=== PATIENT | male | born 1940 | race Caucasian/White ===

== ENCOUNTER 2017-06-18 01:46 | Emergency (ER) | payer OTHER ==
[~2017-06-18] VITALS: Ht 185.4 cm; Wt 77.1 kg
[~2017-06-18 01:46] MED LIST: CARB25TA57 PO; LEV100T PO; OMEP20CA74 PO
[2017-06-18] MEDS ORDERED: HYDROmorphone HCL 2 MG/ML VL IV ONE ×2 (04:00→08:15)
[2017-06-18 04:26] LABS: Basophils # (auto) 0.1 uL; Basophils % (auto) 1.3 % (0.0-2.0); Eosinophils # (auto) 0.1 uL; Eosinophils % (auto) 0.8 % (0.0-7.0); Hematocrit 39.8 % (41.0-53.0); Hemoglobin 13.6 g/dL (13.5-17.5); Lymphocytes # (auto) 1.5 uL; Lymphocytes % (auto) 13.6 % (10.0-50.0); Mean Corpuscular Hemoglobin 33.8 pg (28.0-32.0); Mean Corpuscular Hgb Conc. 34.2 g/dL (32.0-36.0); Mean Corpuscular Volume 98.8 fL (80.0-100.0); Mean Platelet Volume 9.4 fL (6.9-10.8); Monocytes # (auto) 0.5 uL; Monocytes % (auto) 4.7 % (0.0-12.0); Neutrophils # (auto) 8.7 uL; Neutrophils % (auto) 79.6 % (37.0-80.0); Nucleated Red Blood Cells % 0.1 %; Platelet Count (auto) 206 10^3/uL (140-450); Red Cell Distribution Width 13.2 % (11.8-14.3); White Blood Cell 10.9 10^3/uL (4.4-10.8)
[2017-06-18 04:41] LABS: INR 0.95 (0.9-1.15); Partial Thromboplastin Time 25.7 sec (22.64-33.71); Prothrombin Time 10.3 sec (9.37-12.3)
[2017-06-18 04:46] LABS: Amylase 77 U/L (25-115); Anion Gap 9 (5-15); Aspartate Aminotransferase 28 U/L (15-37); BUN/Creatinine Ratio 28.4; Blood Urea Nitrogen 40 mg/dL (7-18); Calcium 9.5 mg/dL (8.5-10.1); Carbon Dioxide 25 mmol/L (21-32); Chloride 111 mmol/L (98-107); GFR African American 63 mL/min; GFR Non-African American 52 mL/min; Glucose 118 mg/dL (74-106); Potassium 4.9 mmol/L (3.5-5.1); Sodium 145 mmol/L (136-145)
[2017-06-18 04:48] LABS: Alkaline Phosphatase 83 U/L (45-117); Bilirubin, Total 0.4 mg/dL (0.2-1.0); Total Protein 7.7 g/dL (6.4-8.2)
[2017-06-18] MEDS ORDERED: ONDANSETRON HCL 4 MG/2 ML VIAL IV ONE (08:15)
[2017-06-18 08:34] VITALS: BP 122/75
== END 2017-06-18 08:48 | disposition short-term general hospital (02) ==
LOC: EDBD 01:46 → ER 01:51
DX: K56.609 Unspecified intestinal obstruction, unspecified as to partial versus complete obstruction (principal); R73.9 Hyperglycemia, unspecified; Z85.828 Personal history of other malignant neoplasm of skin; Z87.442 Personal history of urinary calculi; Z88.0 Allergy status to penicillin
CPT/HCPCS: 36415; 74176; 80053; 82150; 83690; 84484; 85025; 85610; 85730; 94761; 96374; 96375; 96376; 99285; J1170; J2405

== ENCOUNTER 2017-12-14 16:56 | Emergency (ER) | payer OTHER ==
[~2017-12-14] VITALS: Ht 182.9 cm; Wt 79.4 kg
[2017-12-14 19:30] LABS: Basophils # (auto) 0.1 uL; Basophils % (auto) 0.8 % (0.0-2.0); Eosinophils # (auto) 0.6 uL; Eosinophils % (auto) 6.6 % (0.0-7.0); Hematocrit 30.5 % (41.0-53.0); Hemoglobin 10.2 g/dL (13.5-17.5); Lymphocytes # (auto) 2.1 uL; Lymphocytes % (auto) 20.8 % (10.0-50.0); Mean Corpuscular Hemoglobin 33.6 pg (28.0-32.0); Mean Corpuscular Hgb Conc. 33.5 g/dL (32.0-36.0); Mean Corpuscular Volume 100.4 fL (80.0-100.0); Monocytes # (auto) 0.6 uL; Monocytes % (auto) 6.4 % (0.0-12.0); Neutrophils # (auto) 6.5 uL; Neutrophils % (auto) 65.4 % (37.0-80.0); Platelet Count (auto) 252 10^3/uL (140-450); Red Blood Cells 3.03 10^6/uL (4.5-5.90); Red Cell Distribution Width 13.5 % (11.8-14.3); White Blood Cell 9.9 10^3/uL (4.4-10.8)
[2017-12-14 19:35] LABS: Alanine Aminotransferase 8 U/L (16-61); Albumin 3.5 g/dL (3.4-5.0); Alkaline Phosphatase 98 U/L (45-117); Anion Gap 7 (5-15); Aspartate Aminotransferase 16 U/L (15-37); BUN/Creatinine Ratio 27.3; Bilirubin, Total 0.3 mg/dL (0.2-1.0); Blood Urea Nitrogen 42 mg/dL (7-18); Calcium 8.3 mg/dL (8.5-10.1); Carbon Dioxide 21 mmol/L (21-32); Chloride 111 mmol/L (98-107); GFR African American 57 mL/min; GFR Non-African American 47 mL/min; Glucose 95 mg/dL (74-106); Magnesium 2.4 mg/dL (1.6-2.6); Potassium 4.4 mmol/L (3.5-5.1); Sodium 139 mmol/L (136-145); Total Protein 7.9 g/dL (6.4-8.2)
[2017-12-14] MEDS ORDERED: ENOXAPARIN SOD 100 MG/1 ML SYRINGE SC ONE (20:00)
[2017-12-14] MEDS ORDERED: CLINDAMYCIN 600MG IV 50 ML IV ONE (20:00)
[2017-12-14 21:20] LABS: Urine Bacteria NONE SEEN /hpf (None Seen); Urine Blood Negative /uL (Negative); Urine Hyaline Cast FEW /lpf (0 - 2); Urine Mucus FEW (None Seen); Urine Specific Gravity 1.021 (1.001-1.035); Urine WBC 1 /hpf (0 - 3)
[2017-12-14] MEDS ORDERED: CLIN150C PO (23:22)
[2017-12-14] MEDS ORDERED: AMAN100T PO (23:22)
[2017-12-14] MEDS ORDERED: POLY335015 PO (23:22)
[2017-12-14] MEDS ORDERED: OXYB15TA12 PO (23:22)
[2017-12-14] MEDS ORDERED: MEGE40TA15 PO (23:22)
[2017-12-14] MEDS ORDERED: CALCTAB25 PO (23:22)
[2017-12-14] MEDS ORDERED: LACT10CA2 OR (23:22)
[2017-12-14 23:35] VITALS: BP 107/61
== END 2017-12-14 23:40 | disposition home or self-care (01) ==
LOC: ER 17:01
DX: L03.116 Cellulitis of left lower limb (principal); Z79.01 Long term (current) use of anticoagulants; Z87.442 Personal history of urinary calculi; Z88.0 Allergy status to penicillin; Z88.2 Allergy status to sulfonamides
CPT/HCPCS: 36415; 71045; 80053; 81001; 83735; 84484; 85025; 93005; 93971; 94761; 96365; 96366; 96372; 99285; J1650; J3490

== ENCOUNTER 2021-04-18 01:47 | Inpatient (IN) | payer OTHER ==
[~2021-04-18] VITALS: Ht 182.9 cm; Wt 89.6 kg
[~2021-04-18 01:47] MED LIST changes: +AMAN100T PO; +CALCTAB25 PO; +CLIN150C PO; +LACT10CA2 OR; +MEGE40TA4 PO; +OXYB15TA12 PO; +POLY335015 PO
[2021-04-18 02:27] LABS: Basophils # (auto) 0.1 10 ^3/uL (0-0.2); Basophils % (auto) 1.3 % (0.0-2.0); Eosinophils # (auto) 0.3 10 ^3/uL (0-0.8); Eosinophils % (auto) 3.8 % (0.0-7.0); Hematocrit 37.7 % (41.0-53.0); Hemoglobin 12.8 g/dL (13.5-17.5); Lymphocytes # (auto) 2.3 10 ^3/uL (0.4-5.4); Lymphocytes % (auto) 27.2 % (10.0-50.0); Mean Corpuscular Hemoglobin 33.1 pg (28.0-32.0); Mean Corpuscular Hgb Conc. 33.9 g/dL (32.0-36.0); Mean Corpuscular Volume 97.6 fL (80.0-100.0); Monocytes # (auto) 0.6 10 ^3/uL (0-1.3); Monocytes % (auto) 7.3 % (0.0-12.0); Neutrophils % (auto) 60.4 % (37.0-80.0); Nucleated Red Blood Cells % 0.1 %; Red Blood Cells 3.86 10^6/uL (4.5-5.90); Red Cell Distribution Width 14.3 % (11.8-14.3); White Blood Cell 8.3 10^3/uL (4.4-10.8)
[2021-04-18 02:46] LABS: Alanine Aminotransferase 13 U/L (16-61); Albumin 3.8 g/dL (3.4-5.0); Anion Gap 9 (5-15); Aspartate Aminotransferase 28 U/L (15-37); BUN/Creatinine Ratio 23.3; Blood Urea Nitrogen 52 mg/dL (7-18); Calcium 9.6 mg/dL (8.5-10.1); Carbon Dioxide 24 mmol/L (21-32); Chloride 109 mmol/L (98-107); GFR African American 37 mL/min; GFR Non-African American 30 mL/min; Glucose 110 mg/dL (74-106); Magnesium 2.6 mg/dL (1.6-2.6); Potassium 4.3 mmol/L (3.5-5.1); Sodium 142 mmol/L (136-145)
[2021-04-18 02:51] LABS: Alkaline Phosphatase 117 U/L (45-117); Bilirubin, Total 0.2 mg/dL (0.2-1.0)
[2021-04-18] MEDS ORDERED: HEPARIN SODIUM (PORCINE) 5000 UNITS/ML 1ML VIAL IV ONE (04:30)
[2021-04-18] MEDS ORDERED: HEPARIN DRIP/D5W 100UNITS/ML 250 ML IV SCH ×2 (04:30→09:00)
[2021-04-18 05:46] LABS: INR 0.99 (0.9-1.15); Partial Thromboplastin Time 22.9 sec (23.6-33.0)
[2021-04-18] MEDS ORDERED: levoFLOXacin 500MG 100 ML IV ONE (06:45)
[2021-04-18] MEDS ORDERED: VANCOMYCIN 1,500 MG in D5W 5% 250 ML IV ONE (07:45)
[2021-04-18] MEDS ORDERED: MORPHINE SULFATE INJECTION 2 MG/2 ML SYRG IV PRN (10:30)
[2021-04-18] MEDS ORDERED: NITROGLYCERIN 0.4 MG SL TAB SL PRN (10:30)
[2021-04-18] MEDS ORDERED: ALBUTEROL SULF 2.5 MG/0.5ML(0.5%) NEB SOLN NEB PRN (12:00)
[2021-04-18] MEDS ORDERED: ACETAMINOPHEN 500 MG TAB PO PRN (12:00)
[2021-04-18] MEDS ORDERED: DEXTROSE (50%) 50ML SYRG IV PRN (12:00)
[2021-04-18] MEDS ORDERED: LACTULOSE 20Gm/30ML SOLN PO PRN (12:00)
[2021-04-18] MEDS ORDERED: cefTRIAXone 1GM/50ML D5W 50 ML IV ONE (12:00)
[2021-04-18] MEDS ORDERED: ONDANSETRON HCL 4 MG/2 ML VIAL IV PRN (12:00)
[2021-04-18] MEDS ORDERED: traMADol HCL 50 MG TAB PO PRN (12:00)
[2021-04-18 12:10] VITALS: BP 97/52
[2021-04-18 12:34] LABS: Urine Bacteria FEW /hpf (None Seen); Urine Blood 2+ /uL (Negative); Urine Specific Gravity 1.017 (1.001-1.035); Urine WBC 24 /hpf (0 - 3)
[2021-04-18] MEDS: IPRATROPIUM BROM 0.5 MG/2.5ML INH SOL NEB SCH ×2 (13:30→18:00)
[2021-04-18] MEDS: ALBUTEROL SULF 2.5 MG/0.5ML(0.5%) NEB SOLN NEB SCH ×2 (13:30→18:00)
[2021-04-18] MEDS: SODIUM CHLORIDE 0.9% 1,000 ML IV SCH ×2 (14:14→15:24)
[2021-04-18] MEDS ORDERED: ENOXAPARIN SOD 80 MG/0.8ML SYRINGE SC ONE (15:45)
[2021-04-18] MEDS: InsuLIN REG 1unit/0.01ml Soln (100units/ml) SC SCH ×2 (17:00→22:00)
[2021-04-18] MEDS: ACCU-CHEK COMFORT CURVE STRIP VI SCH ×2 (17:25→22:56)
[2021-04-18 21:47] VITALS: BP 102/77
[2021-04-18] MEDS ORDERED: ENOXAPARIN SOD 40 MG/0.4 ML SYRINGE SC SCH (22:00)
[2021-04-18] MEDS ORDERED: MID10T GT (23:28)
[2021-04-18] MEDS ORDERED: LEVO125T7 PO (23:28)
[2021-04-18] MEDS ORDERED: CARB10TA7 PO (23:28)
[2021-04-18] MEDS ORDERED: POLYPOW85 PO (23:28)
[2021-04-18] MEDS ORDERED: BUSP10TA31 PO (23:28)
[2021-04-18] MEDS ORDERED: FURO1TAB33 PO (23:28)
[2021-04-18] MEDS ORDERED: CYAN100056 PO (23:28)
[2021-04-18] MEDS ORDERED: TRAZ-181 PO (23:28)
[2021-04-18] MEDS ORDERED: ALBU2TAB4 PO (23:28)
[2021-04-18] MEDS ORDERED: LATA0.0019 EACHEYE (23:28)
[2021-04-18] MEDS ORDERED: OMEP20TA PO (23:28)
[2021-04-18] MEDS ORDERED: CALC-460 OR (23:28)
[2021-04-18] MEDS ORDERED: HYDR25SU21 PR (23:28)
[2021-04-18] MEDS ORDERED: CLOP75TA70 PO (23:28)
[2021-04-18] MEDS ORDERED: LEVO0.5S6 OP (23:28)
[2021-04-18] MEDS ORDERED: CARB0.5D8 EACHEYE (23:28)
[2021-04-18] MEDS ORDERED: PIMA34CA PO (23:28)
[2021-04-18] MEDS ORDERED: IPR002IS HHN (23:28)
[2021-04-18] MEDS ORDERED: AMAN100T PO (23:28)
[2021-04-18] MEDS ORDERED: CHLO0.12 MT (23:28)
[2021-04-19 00:10] VITALS: BP 102/77
[2021-04-19 02:23] LABS: Hematocrit 31.8 % (41.0-53.0); Hemoglobin 10.8 g/dL (13.5-17.5)
[2021-04-19 05:30] VITALS: BP 103/57
[2021-04-19] MEDS: InsuLIN REG 1unit/0.01ml Soln (100units/ml) SC SCH ×2 (06:00→11:30)
[2021-04-19] MEDS: ACCU-CHEK COMFORT CURVE STRIP VI SCH ×2 (06:00→11:59)
[2021-04-19] MEDS: IPRATROPIUM BROM 0.5 MG/2.5ML INH SOL NEB SCH ×4 (07:00→18:07)
[2021-04-19] MEDS: ALBUTEROL SULF 2.5 MG/0.5ML(0.5%) NEB SOLN NEB SCH ×4 (07:00→18:07)
[2021-04-19 07:04] LABS: Basophils # (auto) 0.1 10 ^3/uL (0-0.2); Basophils % (auto) 0.9 % (0.0-2.0); Eosinophils # (auto) 0.3 10 ^3/uL (0-0.8); Eosinophils % (auto) 3.9 % (0.0-7.0); Hematocrit 30.4 % (41.0-53.0); Hemoglobin 10.5 g/dL (13.5-17.5); Lymphocytes # (auto) 1.5 10 ^3/uL (0.4-5.4); Lymphocytes % (auto) 19.2 % (10.0-50.0); Mean Corpuscular Hemoglobin 33.5 pg (28.0-32.0); Mean Corpuscular Hgb Conc. 34.5 g/dL (32.0-36.0); Mean Corpuscular Volume 97.1 fL (80.0-100.0); Monocytes # (auto) 0.5 10 ^3/uL (0-1.3); Monocytes % (auto) 6.9 % (0.0-12.0); Neutrophils # (auto) 5.2 10 ^3/uL (1.6-8.6); Neutrophils % (auto) 69.1 % (37.0-80.0); Red Blood Cells 3.14 10^6/uL (4.5-5.90); Red Cell Distribution Width 13.6 % (11.8-14.3); White Blood Cell 7.6 10^3/uL (4.4-10.8)
[2021-04-19 07:26] LABS: Potassium 4.1 mmol/L (3.5-5.1)
[2021-04-19 07:35] LABS: Albumin 2.8 g/dL (3.4-5.0); Bilirubin, Total 0.6 mg/dL (0.2-1.0); Calcium 9.1 mg/dL (8.5-10.1); Total Protein 6.4 g/dL (6.4-8.2)
[2021-04-19 09:00] VITALS: BP 96/64
[2021-04-19] MEDS: cefTRIAXone 1GM/50ML D5W 50 ML IV SCH (09:06)
[2021-04-19] MEDS: AZITHROMYCIN 500MG/ 250ML 250 ML IV SCH (10:51)
[2021-04-19] MEDS: PANTOPRAZOLE 40 MG TAB PO SCH (10:52)
[2021-04-19] MEDS: ENOXAPARIN SOD 80 MG/0.8ML SYRINGE SC SCH (10:52)
[2021-04-19 13:00] VITALS: BP 81/51
[2021-04-19 17:00] VITALS: BP 107/58
[2021-04-19 22:00] VITALS: BP 97/55
[2021-04-19] MEDS: SODIUM CHLORIDE 0.9% 1,000 ML IV SCH (22:25)
[2021-04-20] MEDS: ALBUTEROL SULF 2.5 MG/0.5ML(0.5%) NEB SOLN NEB SCH ×5 (00:12→23:59)
[2021-04-20] MEDS: IPRATROPIUM BROM 0.5 MG/2.5ML INH SOL NEB SCH ×5 (00:12→23:59)
[2021-04-20 05:00] VITALS: BP 117/68
[2021-04-20 05:16] LABS: Basophils # (auto) 0.1 10 ^3/uL (0-0.2); Basophils % (auto) 1.4 % (0.0-2.0); Eosinophils # (auto) 0.2 10 ^3/uL (0-0.8); Eosinophils % (auto) 2.7 % (0.0-7.0); Hematocrit 31.2 % (41.0-53.0); Hemoglobin 10.7 g/dL (13.5-17.5); Lymphocytes % (auto) 30.1 % (10.0-50.0); Mean Corpuscular Hemoglobin 33.7 pg (28.0-32.0); Mean Corpuscular Hgb Conc. 34.3 g/dL (32.0-36.0); Monocytes # (auto) 0.4 10 ^3/uL (0-1.3); Monocytes % (auto) 6.8 % (0.0-12.0); Neutrophils # (auto) 3.9 10 ^3/uL (1.6-8.6); Red Blood Cells 3.19 10^6/uL (4.5-5.90); Red Cell Distribution Width 13.8 % (11.8-14.3); White Blood Cell 6.5 10^3/uL (4.4-10.8)
[2021-04-20 05:29] LABS: Albumin 3.1 g/dL (3.4-5.0); Calcium 8.4 mg/dL (8.5-10.1); Potassium 4.5 mmol/L (3.5-5.1)
[2021-04-20 05:31] LABS: BUN/Creatinine Ratio 21.7
[2021-04-20 05:33] LABS: Bilirubin, Total 0.4 mg/dL (0.2-1.0); Total Protein 6.6 g/dL (6.4-8.2)
[2021-04-20 08:00] VITALS: BP 114/62
[2021-04-20] MEDS: cefTRIAXone 1GM/50ML D5W 50 ML IV SCH (08:41)
[2021-04-20 09:00] VITALS: BP 95/39
[2021-04-20] MEDS: ENOXAPARIN SOD 80 MG/0.8ML SYRINGE SC SCH ×2 (10:33→22:16)
[2021-04-20] MEDS: PANTOPRAZOLE 40 MG TAB PO SCH (10:33)
[2021-04-20] MEDS: AZITHROMYCIN 500MG/ 250ML 250 ML IV SCH (10:33)
[2021-04-20 12:48] LABS: INR 0.99 (0.9-1.15); Partial Thromboplastin Time 28.5 sec (23.6-33.0)
[2021-04-20 13:00] VITALS: BP 90/38
[2021-04-20] MEDS ORDERED: SODIUM CHLORIDE 0.9% 500 ML IV ONE (14:00)
[2021-04-20] MEDS: CARBIDOPA W LEVODOPA 25/100mg TABLET PO SCH ×2 (14:40→22:16)
[2021-04-20 17:00] VITALS: BP 110/59
[2021-04-20] MEDS: MIDODRINE HCL 10 MG TAB PO SCH (17:55)
[2021-04-20] MEDS: busPIRone HCL 10 MG TAB PO SCH (22:16)
[2021-04-21 05:48] VITALS: BP 98/44
[2021-04-21] MEDS: MIDODRINE HCL 10 MG TAB PO SCH ×3 (06:28→18:06)
[2021-04-21] MEDS: LEVOTHYROXINE SODIUM 50 MCG TAB PO SCH (06:29)
[2021-04-21] MEDS: CARBIDOPA W LEVODOPA 25/100mg TABLET PO SCH ×3 (06:29→22:00)
[2021-04-21 06:36] LABS: Basophils # (auto) 0.1 10 ^3/uL (0-0.2); Basophils % (auto) 0.9 % (0.0-2.0); Eosinophils # (auto) 0.4 10 ^3/uL (0-0.8); Eosinophils % (auto) 5.4 % (0.0-7.0); Hemoglobin 10.4 g/dL (13.5-17.5); Lymphocytes # (auto) 2.1 10 ^3/uL (0.4-5.4); Lymphocytes % (auto) 25.2 % (10.0-50.0); Mean Corpuscular Hemoglobin 32.8 pg (28.0-32.0); Mean Corpuscular Hgb Conc. 33.7 g/dL (32.0-36.0); Mean Corpuscular Volume 97.4 fL (80.0-100.0); Monocytes # (auto) 0.5 10 ^3/uL (0-1.3); Monocytes % (auto) 6.4 % (0.0-12.0); Neutrophils # (auto) 5.1 10 ^3/uL (1.6-8.6); Neutrophils % (auto) 62.1 % (37.0-80.0); Red Blood Cells 3.18 10^6/uL (4.5-5.90); Red Cell Distribution Width 13.7 % (11.8-14.3); White Blood Cell 8.1 10^3/uL (4.4-10.8)
[2021-04-21] MEDS: SODIUM CHLORIDE 0.9% 1,000 ML IV SCH ×2 (06:37→22:00)
[2021-04-21 06:49] LABS: Potassium 4.4 mmol/L (3.5-5.1)
[2021-04-21 06:59] LABS: Albumin 2.7 g/dL (3.4-5.0); BUN/Creatinine Ratio 21.2; Bilirubin, Total 0.4 mg/dL (0.2-1.0); Calcium 8.4 mg/dL (8.5-10.1); Total Protein 6.3 g/dL (6.4-8.2)
[2021-04-21] MEDS: ALBUTEROL SULF 2.5 MG/0.5ML(0.5%) NEB SOLN NEB SCH ×3 (07:14→19:08)
[2021-04-21] MEDS: IPRATROPIUM BROM 0.5 MG/2.5ML INH SOL NEB SCH ×3 (07:14→19:08)
[2021-04-21 08:00] VITALS: BP 95/55
[2021-04-21] MEDS: cefTRIAXone 1GM/50ML D5W 50 ML IV SCH (08:49)
[2021-04-21] MEDS: busPIRone HCL 10 MG TAB PO SCH ×2 (08:49→22:00)
[2021-04-21] MEDS: ASPirin 81 mg TAB PO SCH (08:49)
[2021-04-21] MEDS: CALCIUM W/VIT D (600MG/400IU) TAB PO SCH (08:50)
[2021-04-21 09:00] VITALS: BP 95/55
[2021-04-21] MEDS: PANTOPRAZOLE 40 MG TAB PO SCH (09:39)
[2021-04-21] MEDS: ENOXAPARIN SOD 80 MG/0.8ML SYRINGE SC SCH ×2 (09:39→22:01)
[2021-04-21] MEDS: PIMAVANSERIN 34 MG PO SCH (09:39)
[2021-04-21] MEDS ORDERED: PIMAVANSERIN 34 MG PO SCH (10:00)
[2021-04-21] MEDS: AZITHROMYCIN 500MG/ 250ML 250 ML IV SCH (10:45)
[2021-04-21 13:00] VITALS: BP 133/72
[2021-04-21 17:00] VITALS: BP 137/78
[2021-04-21 22:00] VITALS: BP 130/80
[2021-04-22] MEDS: IPRATROPIUM BROM 0.5 MG/2.5ML INH SOL NEB SCH ×4 (00:50→19:04)
[2021-04-22] MEDS: ALBUTEROL SULF 2.5 MG/0.5ML(0.5%) NEB SOLN NEB SCH ×4 (00:50→19:04)
[2021-04-22 05:00] VITALS: BP 128/80
[2021-04-22 05:58] LABS: Basophils # (auto) 0.1 10 ^3/uL (0-0.2); Basophils % (auto) 1.3 % (0.0-2.0); Eosinophils # (auto) 0.3 10 ^3/uL (0-0.8); Eosinophils % (auto) 4.7 % (0.0-7.0); Hematocrit 31.4 % (41.0-53.0); Hemoglobin 10.7 g/dL (13.5-17.5); Lymphocytes # (auto) 1.9 10 ^3/uL (0.4-5.4); Lymphocytes % (auto) 27.9 % (10.0-50.0); Mean Corpuscular Hemoglobin 33.2 pg (28.0-32.0); Mean Corpuscular Hgb Conc. 34.2 g/dL (32.0-36.0); Mean Corpuscular Volume 96.9 fL (80.0-100.0); Monocytes # (auto) 0.5 10 ^3/uL (0-1.3); Monocytes % (auto) 7.3 % (0.0-12.0); Neutrophils % (auto) 58.8 % (37.0-80.0); Red Blood Cells 3.24 10^6/uL (4.5-5.90); Red Cell Distribution Width 13.7 % (11.8-14.3); White Blood Cell 6.9 10^3/uL (4.4-10.8)
[2021-04-22] MEDS: CARBIDOPA W LEVODOPA 25/100mg TABLET PO SCH ×3 (06:19→21:47)
[2021-04-22] MEDS: LEVOTHYROXINE SODIUM 50 MCG TAB PO SCH (06:19)
[2021-04-22] MEDS: MIDODRINE HCL 10 MG TAB PO SCH ×3 (06:19→17:34)
[2021-04-22 06:21] LABS: Potassium 4.2 mmol/L (3.5-5.1)
[2021-04-22 06:29] LABS: BUN/Creatinine Ratio 22.3; Bilirubin, Total 0.4 mg/dL (0.2-1.0); Calcium 8.6 mg/dL (8.5-10.1); Total Protein 6.8 g/dL (6.4-8.2)
[2021-04-22 09:00] VITALS: BP 107/56
[2021-04-22] MEDS: cefTRIAXone 1GM/50ML D5W 50 ML IV SCH (09:27)
[2021-04-22] MEDS: PIMAVANSERIN 34 MG PO SCH (09:28)
[2021-04-22] MEDS: ENOXAPARIN SOD 80 MG/0.8ML SYRINGE SC SCH ×2 (09:28→21:47)
[2021-04-22] MEDS: busPIRone HCL 10 MG TAB PO SCH ×2 (09:28→21:47)
[2021-04-22] MEDS: PANTOPRAZOLE 40 MG TAB PO SCH (09:28)
[2021-04-22] MEDS: CALCIUM W/VIT D (600MG/400IU) TAB PO SCH (09:28)
[2021-04-22] MEDS: ASPirin 81 mg TAB PO SCH (09:28)
[2021-04-22] MEDS: LACTATED RINGER'S 1,000 ML IV SCH ×2 (09:30→23:00)
[2021-04-22] MEDS: AZITHROMYCIN 500MG/ 250ML 250 ML IV SCH (10:19)
[2021-04-22 13:00] VITALS: BP 94/42
[2021-04-22 17:00] VITALS: BP 84/50
[2021-04-22 21:43] VITALS: BP 149/77
[2021-04-23] MEDS: IPRATROPIUM BROM 0.5 MG/2.5ML INH SOL NEB SCH ×4 (00:02→19:15)
[2021-04-23] MEDS: ALBUTEROL SULF 2.5 MG/0.5ML(0.5%) NEB SOLN NEB SCH ×4 (00:02→19:15)
[2021-04-23 05:00] VITALS: BP 130/72
[2021-04-23] MEDS: MIDODRINE HCL 10 MG TAB PO SCH ×3 (05:57→18:08)
[2021-04-23] MEDS: CARBIDOPA W LEVODOPA 25/100mg TABLET PO SCH ×3 (05:58→21:47)
[2021-04-23] MEDS: LEVOTHYROXINE SODIUM 50 MCG TAB PO SCH (07:58)
[2021-04-23] MEDS: CALCIUM W/VIT D (600MG/400IU) TAB PO SCH (10:12)
[2021-04-23] MEDS: ASPirin 81 mg TAB PO SCH (10:13)
[2021-04-23] MEDS: PANTOPRAZOLE 40 MG TAB PO SCH (10:13)
[2021-04-23] MEDS: ENOXAPARIN SOD 80 MG/0.8ML SYRINGE SC SCH ×2 (10:13→21:48)
[2021-04-23] MEDS: PIMAVANSERIN 34 MG PO SCH (10:13)
[2021-04-23] MEDS: busPIRone HCL 10 MG TAB PO SCH ×2 (10:13→22:00)
[2021-04-23] MEDS ORDERED: AZITHROMYCIN 250 MG TAB PO ONE (10:30)
[2021-04-23] MEDS: LACTATED RINGER'S 1,000 ML IV SCH ×2 (11:38→15:58)
[2021-04-23 13:00] VITALS: BP 130/57
[2021-04-23 17:00] VITALS: BP 115/56
[2021-04-23 21:54] VITALS: BP 155/86
[2021-04-23 22:10] VITALS: BP 145/66
[2021-04-24] MEDS: IPRATROPIUM BROM 0.5 MG/2.5ML INH SOL NEB SCH ×5 (00:20→23:53)
[2021-04-24] MEDS: ALBUTEROL SULF 2.5 MG/0.5ML(0.5%) NEB SOLN NEB SCH ×5 (00:20→23:53)
[2021-04-24 01:19] VITALS: BP 155/86
[2021-04-24 05:00] VITALS: BP 111/66
[2021-04-24] MEDS: MIDODRINE HCL 10 MG TAB PO SCH ×3 (06:11→17:51)
[2021-04-24] MEDS: LEVOTHYROXINE SODIUM 50 MCG TAB PO SCH (06:12)
[2021-04-24] MEDS: CARBIDOPA W LEVODOPA 25/100mg TABLET PO SCH ×3 (06:12→21:32)
[2021-04-24] MEDS: LACTATED RINGER'S 1,000 ML IV SCH (08:19)
[2021-04-24] MEDS: ASPirin 81 mg TAB PO SCH (08:53)
[2021-04-24] MEDS: PANTOPRAZOLE 40 MG TAB PO SCH (08:54)
[2021-04-24] MEDS: busPIRone HCL 10 MG TAB PO SCH ×2 (08:54→21:32)
[2021-04-24] MEDS: CALCIUM W/VIT D (600MG/400IU) TAB PO SCH (08:54)
[2021-04-24] MEDS: AZITHROMYCIN 250 MG TAB PO SCH (08:54)
[2021-04-24] MEDS: ENOXAPARIN SOD 80 MG/0.8ML SYRINGE SC SCH ×2 (08:54→21:33)
[2021-04-24 09:00] VITALS: BP 98/57
[2021-04-24] MEDS: PIMAVANSERIN 34 MG PO SCH (09:19)
[2021-04-24 12:39] VITALS: BP 129/69
[2021-04-24 17:00] VITALS: BP 105/58
[2021-04-24 22:00] VITALS: BP 128/72
[2021-04-25 05:00] VITALS: BP 134/74
[2021-04-25] MEDS: CARBIDOPA W LEVODOPA 25/100mg TABLET PO SCH ×2 (06:13→14:00)
[2021-04-25] MEDS: LEVOTHYROXINE SODIUM 50 MCG TAB PO SCH (06:13)
[2021-04-25] MEDS: MIDODRINE HCL 10 MG TAB PO SCH ×2 (06:13→12:11)
[2021-04-25] MEDS: IPRATROPIUM BROM 0.5 MG/2.5ML INH SOL NEB SCH (07:05)
[2021-04-25] MEDS: ALBUTEROL SULF 2.5 MG/0.5ML(0.5%) NEB SOLN NEB SCH (07:05)
[2021-04-25 09:00] VITALS: BP 115/55
[2021-04-25] MEDS: ENOXAPARIN SOD 80 MG/0.8ML SYRINGE SC SCH (09:30)
[2021-04-25] MEDS: AZITHROMYCIN 250 MG TAB PO SCH (09:31)
[2021-04-25] MEDS: PANTOPRAZOLE 40 MG TAB PO SCH (09:31)
[2021-04-25] MEDS: PIMAVANSERIN 34 MG PO SCH (09:31)
[2021-04-25] MEDS: ASPirin 81 mg TAB PO SCH (09:31)
[2021-04-25] MEDS: busPIRone HCL 10 MG TAB PO SCH (09:31)
[2021-04-25] MEDS: CALCIUM W/VIT D (600MG/400IU) TAB PO SCH (09:31)
[2021-04-25 12:44] VITALS: BP 144/69
== END 2021-04-25 15:00 | disposition home or self-care (01) | DRG 193 ==
LOC: EDBD 01:47 → ER 01:47 → TELE 10:22 → TELE-WESTW 20:00
PROVIDERS: ADMIT Internal Medicine; ATTEND Family Medicine
DX: J18.9 Pneumonia, unspecified organism (principal); N17.0 Acute kidney failure with tubular necrosis; I50.23 Acute on chronic systolic (congestive) heart failure; J96.01 Acute respiratory failure with hypoxia; I13.0 Hypertensive heart and chronic kidney disease with heart failure and stage 1 through stage 4 chronic kidney disease, or unspecified chronic kidney disease; N39.0 Urinary tract infection, site not specified; I82.501 Chronic embolism and thrombosis of unspecified deep veins of right lower extremity; E03.9 Hypothyroidism, unspecified; N18.32 Chronic kidney disease, stage 3b; D63.8 Anemia in other chronic diseases classified elsewhere; G20 Parkinson's disease; I95.9 Hypotension, unspecified; R62.7 Adult failure to thrive; Z20.822 Contact with and (suspected) exposure to COVID-19; Z87.442 Personal history of urinary calculi; Z88.2 Allergy status to sulfonamides; Z88.0 Allergy status to penicillin
CPT/HCPCS: 36415; 71045; 76775; 78582; 80053; 80061; 81001; 82550; 82962; 83036; 83605; 83735; 83880; 84484; 85014; 85018; 85025; 85379; 85610; 85730; 87040; 87070; 87086; 87205; 87426; 93005; 93306; 93970; 94640; 96365; 96366; 96368; 96372; 96375; 97110; 97116; 97163; 97530; G0378; J0696; J1956; J7060

== ENCOUNTER 2021-10-11 16:07 | Emergency (ER) | payer OTHER ==
[~2021-10-11] VITALS: Ht 177.8 cm; Wt 104.3 kg
[~2021-10-11 16:07] MED LIST changes: +ALBU2TAB4 PO; +BUSP10TA31 PO; +CALC-460 OR; +CARB0.5D8 EACHEYE; +CARB10TA21 PO; +CHLO0.12 MT; +CLOP75TA70 PO; +CYAN100056 PO; +FURO1TAB33 PO; +HYDR25SU21 PR; +IPR002IS HHN; +LATA0.0019 EACHEYE; +LEVO0.5S6 OP; +LEVO125T7 PO; +MID10T GT; +OMEP20TA PO; +PIMA34CA PO; +POLYPOW85 PO; +TRAZ-181 PO
[2021-10-11 16:57] LABS: Basophils # (auto) 0.1 10 ^3/uL (0-0.2); Basophils % (auto) 1.2 % (0.0-2.0); Eosinophils # (auto) 0.1 10 ^3/uL (0-0.8); Eosinophils % (auto) 1.3 % (0.0-7.0); Hematocrit 30.8 % (41.0-53.0); Hemoglobin 10.4 g/dL (13.5-17.5); Lymphocytes # (auto) 1.5 10 ^3/uL (0.4-5.4); Lymphocytes % (auto) 15.8 % (10.0-50.0); Mean Corpuscular Hemoglobin 33.3 pg (28.0-32.0); Mean Corpuscular Hgb Conc. 33.8 g/dL (32.0-36.0); Mean Corpuscular Volume 98.5 fL (80.0-100.0); Monocytes # (auto) 0.7 10 ^3/uL (0-1.3); Monocytes % (auto) 7.8 % (0.0-12.0); Neutrophils % (auto) 73.9 % (37.0-80.0); Red Blood Cells 3.13 10^6/uL (4.5-5.90); White Blood Cell 9.5 10^3/uL (4.4-10.8)
[2021-10-11 17:18] LABS: Albumin 3.6 g/dL (3.4-5.0); Calcium 10.1 mg/dL (8.5-10.1); Potassium 4.2 mmol/L (3.5-5.1)
[2021-10-11 17:22] LABS: BUN/Creatinine Ratio 27.4; Bilirubin, Total 0.5 mg/dL (0.2-1.0)
[2021-10-11] MEDS ORDERED: SODIUM CHLORIDE 0.9% 1,000 ML IV ONE (19:45)
[2021-10-11] MEDS ORDERED: levoFLOXacin 500MG 100 ML IV ONE (19:45)
[2021-10-11] MEDS ORDERED: ALBUTEROL SULF 2.5 MG/0.5ML(0.5%) NEB SOLN NEB ONE (20:15)
[2021-10-11 22:35] VITALS: BP 119/66
== END 2021-10-11 23:09 | disposition short-term general hospital (02) ==
LOC: EDBD 16:07 → EDUNIT# 16:07 → ER 16:07
DX: R06.02 Shortness of breath (principal); Z87.442 Personal history of urinary calculi; Z20.822 Contact with and (suspected) exposure to COVID-19
CPT/HCPCS: 36415; 71045; 80053; 83880; 85025; 87040; 87077; 87186; 87426; 87804; 93005; 94640; 96365; 99285; J1956; J7030

== ENCOUNTER 2021-10-26 01:11 | Emergency (ER) | payer OTHER ==
[~2021-10-26] VITALS: Ht 172.7 cm; Wt 79.4 kg
[2021-10-26 02:45] LABS: Basophils # (auto) 0.1 10 ^3/uL (0-0.2); Basophils % (auto) 1.3 % (0.0-2.0); Eosinophils # (auto) 0.3 10 ^3/uL (0-0.8); Eosinophils % (auto) 3.5 % (0.0-7.0); Hematocrit 34.1 % (41.0-53.0); Hemoglobin 11.5 g/dL (13.5-17.5); Lymphocytes # (auto) 2.3 10 ^3/uL (0.4-5.4); Lymphocytes % (auto) 29.2 % (10.0-50.0); Mean Corpuscular Hemoglobin 33.6 pg (28.0-32.0); Mean Corpuscular Hgb Conc. 33.7 g/dL (32.0-36.0); Mean Corpuscular Volume 99.7 fL (80.0-100.0); Monocytes # (auto) 0.5 10 ^3/uL (0-1.3); Monocytes % (auto) 6.2 % (0.0-12.0); Neutrophils # (auto) 4.8 10 ^3/uL (1.6-8.6); Neutrophils % (auto) 59.8 % (37.0-80.0); Nucleated Red Blood Cells % 0.1 %; Red Blood Cells 3.42 10^6/uL (4.5-5.90); Red Cell Distribution Width 14.1 % (11.8-14.3)
[2021-10-26 03:23] LABS: Albumin 3.6 g/dL (3.4-5.0); Potassium 4.2 mmol/L (3.5-5.1)
[2021-10-26 03:31] LABS: BUN/Creatinine Ratio 26.3; Bilirubin, Total 0.4 mg/dL (0.2-1.0); Total Protein 6.8 g/dL (6.4-8.2)
[2021-10-26 05:24] VITALS: BP 124/88
== END 2021-10-26 04:17 | disposition home or self-care (01) ==
LOC: EDBD 01:11 → ER 01:16
DX: T17.920A Food in respiratory tract, part unspecified causing asphyxiation, initial encounter (principal); R06.02 Shortness of breath; Z87.442 Personal history of urinary calculi
CPT/HCPCS: 36415; 71045; 80053; 83880; 84484; 85025; 93005

== ENCOUNTER 2022-05-09 14:33 | Emergency (ER) | payer OTHER ==
[~2022-05-09] VITALS: Ht 208.3 cm; Wt 91.0 kg
[2022-05-09 15:57] LABS: Basophils # (auto) 0.1 10 ^3/uL (0-0.2); Basophils % (auto) 1.2 % (0.0-2.0); Eosinophils # (auto) 0 10 ^3/uL (0-0.8); Eosinophils % (auto) 0.1 % (0.0-7.0); Hematocrit 34.1 % (41.0-53.0); Lymphocytes % (auto) 8.6 % (10.0-50.0); Mean Corpuscular Hemoglobin 31.2 pg (28.0-32.0); Mean Corpuscular Hgb Conc. 32.3 g/dL (32.0-36.0); Mean Corpuscular Volume 96.3 fL (80.0-100.0); Monocytes # (auto) 0.9 10 ^3/uL (0-1.3); Monocytes % (auto) 7.8 % (0.0-12.0); Neutrophils # (auto) 9.5 10 ^3/uL (1.6-8.6); Neutrophils % (auto) 82.3 % (37.0-80.0); Red Blood Cells 3.54 10^6/uL (4.5-5.90); Red Cell Distribution Width 15.8 % (11.8-14.3); White Blood Cell 11.5 10^3/uL (4.4-10.8)
[2022-05-09] MEDS ORDERED: SODIUM CHLORIDE 0.9% 1,000 ML IV ONE (16:30)
[2022-05-09 17:01] LABS: Urine Bacteria FEW /hpf (None Seen); Urine Blood Negative /uL (Negative); Urine Hyaline Cast FEW /lpf (0 - 2); Urine Mucus FEW (None Seen); Urine Specific Gravity 1.015 (1.001-1.035); Urine WBC 1 /hpf (0 - 3)
[2022-05-09 17:37] LABS: Potassium 4.4 mmol/L (3.5-5.1)
[2022-05-09 17:42] LABS: Albumin 3.1 g/dL (3.4-5.0); BUN/Creatinine Ratio 20.5; Calcium 9.5 mg/dL (8.5-10.1); Magnesium 2.2 mg/dL (1.6-2.6)
[2022-05-09 17:44] LABS: Bilirubin, Total 0.6 mg/dL (0.2-1.0); Total Protein 6.6 g/dL (6.4-8.2)
[2022-05-09 20:59] VITALS: BP 112/57
== END 2022-05-09 21:45 | disposition short-term general hospital (02) ==
LOC: ER 14:33 → EDUNIT# 14:33 → EDBD 14:33 → ER 21:39
DX: E86.0 Dehydration (principal); N19 Unspecified kidney failure; K52.89 Other specified noninfective gastroenteritis and colitis; R51.9 Headache, unspecified; Z20.822 Contact with and (suspected) exposure to COVID-19
CPT/HCPCS: 36415; 70450; 71045; 74176; 80053; 81001; 83735; 84484; 85025; 87426; 93005; 96360; 99285; J7030